=== PATIENT | male | born 1960 | race African-American/Black ===

== ENCOUNTER → 2021-05-30 | Outpatient (CLI) | payer OTHER ==
--- NOTE | 2021-05-30 10:29 | RAD ---
EXAM: Lumbar spine, 2 views. HISTORY: Pain. COMPARISON: None. FINDINGS: 2 views of the lumbar spine are obtained. There is minimal S-shaped lumbar scoliosis. There is mild retrolisthesis of L2 on L3 and L3 on L4 and L4 on L5. There is degenerative endplate remodel ing with disc space narrowing and osteophytosis primarily along the left aspect of L3-L4 and right as pect of L4-L5. This corresponds with the levels of maximum scoliotic concavity. 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 IMPRESSION: 1. Multilevel degenerative change, described in detail above. 2. No acute osseous finding. Electronically signed by: Monika Weinstein MD (05/30/2021 10:27 AM) [id number]
== END ==
LOC: RAD 09:59
PROVIDERS: ATTEND Family Medicine
DX: Z02.71 Encounter for disability determination (principal); M47.817 Spondylosis without myelopathy or radiculopathy, lumbosacral region; M48.061 Spinal stenosis, lumbar region without neurogenic claudication; M25.78 Osteophyte, vertebrae; M41.86 Other forms of scoliosis, lumbar region
CPT/HCPCS: 72100